=== PATIENT | female | born 1950 | race Caucasian/White ===

== ENCOUNTER 2018-11-23 07:36 | Outpatient (CLI) | payer OTHER ==
[2018-11-23] MEDS ORDERED: DIATR MEGLU/DIATRIZ SOD 30 ML SOLUTION PO ONE (08:11)
== END 2018-11-23 19:05 | disposition home or self-care (01) ==
LOC: SCT 07:36
PROVIDERS: ATTEND Family Medicine
DX: K40.20 Bilateral inguinal hernia, without obstruction or gangrene, not specified as recurrent (principal); K44.9 Diaphragmatic hernia without obstruction or gangrene
CPT/HCPCS: 74176; Q9964

== ENCOUNTER 2019-01-04 13:02 | Inpatient (IN) | payer OTHER ==
[~2019-01-04] VITALS: Ht 167.6 cm; Wt 90.7 kg
[2019-01-04 14:04] VITALS: BP_SYST 106
[2019-01-04 16:30] VITALS: BP_SYST 102
[2019-01-04 16:36] LABS: ALBUMIN 3.4 g/dL (3.4-4.8); CALCIUM 9.2 mg/dL (8.4-11.0); CREATININE 0.95 mg/dL (0.55-1.30); TOTAL BILIRUBIN 0.6 mg/dL (0.0-1.0)
[2019-01-04] MEDS: HYDROmorphone 2 MG/ML VIAL IVP PRN (16:38)
[2019-01-04 16:51] LABS: BASOPHILS # (AUTO) 0.1 K/uL (0.0-0.2); BASOPHILS % (AUTO) 0.4 % (0.0-2.0); EOSINOPHILS # (AUTO) 0.3 K/uL (0.0-0.4); EOSINOPHILS % (AUTO) 2.2 % (0.0-4.0); HEMATOCRIT 44.5 % (36-48); HEMOGLOBIN 14.9 g/dL (12.0-16.0); LYMPHOCYTES # (AUTO) 3.1 K/uL (1.0-5.5); LYMPHOCYTES % (AUTO) 21.4 % (20.5-51.5); MEAN CORPUSCULAR HEMOGLOBIN 29 pg (27-31); MEAN CORPUSCULAR HGB CONC 34 % (32-36); MEAN CORPUSCULAR VOLUME 88 fL (79.0-98.0); MONOCYTES # (AUTO) 0.5 K/uL (0.0-1.0); MONOCYTES % (AUTO) 3.5 % (1.7-9.3); NEUTROPHILS # (AUTO) 10.7 K/uL (1.8-7.7); NEUTROPHILS % (AUTO) 72.5 % (40.0-70.0); PLATELET COUNT (AUTO) 260 K/uL (130-430); RED BLOOD CELL COUNT(AUTO) 5.09 MIL/uL (4.2-6.2); RED CELL DISTRIBUTION WIDTH 11.8 % (9.0-15.0); WHITE BLOOD COUNT (AUTO) 14.7 K/uL (4.8-10.8)
[2019-01-04] MEDS ORDERED: IBUP-1969 PO (17:44)
[2019-01-04] MEDS ORDERED: HYDR-4272 PO (17:44)
[2019-01-04] MEDS: KETOROLAC TROMETHAMINE 15 MG VIAL IVP SCH (18:25)
[2019-01-04] MEDS: ONDANSETRON HCL 4 MG/2 ML VIAL IVP PRN (18:26)
[2019-01-04 19:00] VITALS: BP_SYST 141
[2019-01-05] VITALS (7 sets, daily range): BP systolic 91–142
[2019-01-05] MEDS: KETOROLAC TROMETHAMINE 15 MG VIAL IVP SCH ×4 (00:14→18:08)
[2019-01-05] MEDS: ONDANSETRON HCL 4 MG/2 ML VIAL IVP PRN (00:14)
[2019-01-05] MEDS: LEVOTHYROXINE SODIUM 0.125 MG TABLET PO SCH (05:32)
[2019-01-05 05:55] LABS: BILIRUBIN,URINE NEGATIVE (NEGATIVE); BLOOD, URINE NEGATIVE (NEGATIVE); CLARITY/URINE CLEAR (CLEAR); COLOR,URINE YELLOW (YELLOW); GLUCOSE,URINE NEGATIVE (NEGATIVE); KETONES,URINE NEGATIVE (NEGATIVE); LEUKOCYTE ESTERASE ,URINE 1+ (NEGATIVE); NITRITE, URINE NEGATIVE (NEGATIVE); PROTEIN URINE NEGATIVE (NEGATIVE); UROBILINOGEN,URINE 0.2 (0.2-1.0)
[2019-01-05 06:09] LABS: BACTERIA,URINE FEW /HPF (None Seen); RBC,URINE 0-3 /HPF (0-3)
[2019-01-05] MEDS: ENOXAPARIN SODIUM 40 MG/0.4 ML SYRINGE SUBCUT SCH (08:29)
[2019-01-06 00:22] VITALS: BP_SYST 131
[2019-01-06] MEDS: KETOROLAC TROMETHAMINE 15 MG VIAL IVP SCH ×4 (00:50→17:44)
[2019-01-06] MEDS: LEVOTHYROXINE SODIUM 0.125 MG TABLET PO SCH (06:04)
[2019-01-06 08:13] VITALS: BP_SYST 107
[2019-01-06] MEDS: ENOXAPARIN SODIUM 40 MG/0.4 ML SYRINGE SUBCUT SCH (08:29)
[2019-01-06 11:29] VITALS: BP_SYST 119
[2019-01-06] MEDS: HYDROmorphone 2 MG/ML VIAL IVP PRN (13:34)
[2019-01-06] MEDS ORDERED: MILK OF MAGNESIA 30 ML UDC PO ONE (14:15)
[2019-01-06 15:44] VITALS: BP_SYST 112
[2019-01-06 16:20] VITALS: BP_SYST 106
[2019-01-06] MEDS: ONDANSETRON HCL 4 MG/2 ML VIAL IVP PRN (16:23)
[2019-01-06 18:21] VITALS: BP_SYST 96
[2019-01-06] MEDS ORDERED: NAPR-690 PO (18:28)
[2019-01-06] MEDS ORDERED: ONDA4TAB5 PO (18:29)
[2019-01-06] MEDS ORDERED: TYC3 PO (18:30)
== END 2019-01-06 18:52 | disposition home or self-care (01) | DRG 554 ==
LOC: SMU 13:27
PROVIDERS: ADMIT Family Medicine; ATTEND Family Medicine
DX: M16.12 Unilateral primary osteoarthritis, left hip (principal); E03.9 Hypothyroidism, unspecified; M51.16 Intervertebral disc disorders with radiculopathy, lumbar region; M48.061 Spinal stenosis, lumbar region without neurogenic claudication; N31.9 Neuromuscular dysfunction of bladder, unspecified; K40.90 Unilateral inguinal hernia, without obstruction or gangrene, not specified as recurrent
CPT/HCPCS: 36415; 72192-TC; 80053; 81000-TC; 85025; 87086; J1170; J1650; J1885; J2405; J7050

== ENCOUNTER 2021-08-02 10:02 | Emergency (ER) | payer OTHER ==
[~2021-08-02] VITALS: Ht 167.6 cm; Wt 99.8 kg
[~2021-08-02 10:02] MED LIST: HYDR-4272 PO; NAPR-690 PO; ONDA4TAB5 PO; TYC3 PO
[2021-08-02 10:05] VITALS: BP_SYST 128
[2021-08-02] MEDS ORDERED: HYDROcodone/ACETAMIN 10-325 MG TAB PO ONE (11:00)
[2021-08-02] MEDS ORDERED: KETOROLAC TROMETHAMINE 60 MG/2 ML VIAL IM ONE (11:00)
[2021-08-02 11:25] LABS: BASOPHILS # (AUTO) 0.1 K/uL (0.0-0.2); BASOPHILS % (AUTO) 0.8 % (0.0-2.0); EOSINOPHILS # (AUTO) 0.5 K/uL (0.0-0.4); EOSINOPHILS % (AUTO) 4.4 % (0.0-4.0); HEMATOCRIT 42.1 % (36-48); HEMOGLOBIN 14.6 g/dL (12.0-16.0); LYMPHOCYTES # (AUTO) 2.7 K/uL (1.0-5.5); MEAN CORPUSCULAR HEMOGLOBIN 31 pg (27-31); MEAN CORPUSCULAR HGB CONC 35 % (32-36); MEAN CORPUSCULAR VOLUME 90 fL (79.0-98.0); MONOCYTES # (AUTO) 0.7 K/uL (0.0-1.0); MONOCYTES % (AUTO) 6.1 % (1.7-9.3); NEUTROPHILS % (AUTO) 63.7 % (40.0-70.0); PLATELET COUNT (AUTO) 213 K/uL (130-430); RED BLOOD CELL COUNT(AUTO) 4.66 MIL/uL (4.2-6.2); RED CELL DISTRIBUTION WIDTH 13.1 % (9.0-15.0); WHITE BLOOD COUNT (AUTO) 10.9 K/uL (4.8-10.8)
[2021-08-02 11:35] LABS: ANION GAP 8 (5-15); CALCIUM 9.5 mg/dL (8.4-11.0); CHLORIDE 103 mmol/L (98-107); CREATININE 0.98 mg/dL (0.55-1.30); GLUCOSE 176 mg/dL (70-99); POTASSIUM 4.2 mmol/L (3.5-5.1); SODIUM SERUM 140 mmol/L (136-145); UREA NITROGEN, BLOOD 15 mg/dL (8-21)
[2021-08-02 11:39] LABS: ALANINE AMINOTRANSFERASE 33 U/L (12-78); ASPARTATE AMINOTRANSFERASE 29 U/L (10-37); LIPASE 145 U/L (73-393); TOTAL BILIRUBIN 0.5 mg/dL (0.0-1.0)
[2021-08-02] MEDS ORDERED: TRAM50TA2 PO (14:36)
[2021-08-02] MEDS ORDERED: IBUPROFEN 800 MG TABLET PO ONE (14:45)
[2021-08-02 14:47] VITALS: BP_SYST 140
== END 2021-08-02 14:48 | disposition home or self-care (01) ==
LOC: SED 10:02
DX: R10.32 Left lower quadrant pain (principal); Z79.899 Other long term (current) drug therapy
CPT/HCPCS: 36415; 74176; 76376; 80053; 81002; 83690; 85025; 96372; 99284; J1885